=== PATIENT | female | born 1955 | race Caucasian/White ===

== ENCOUNTER 2017-08-17 06:42 | Day surgery (SDC) | payer OTHER ==
[~2017-08-17] VITALS: Ht 152.4 cm; Wt 43.1 kg
[2017-08-17 07:24] VITALS: Ht 152.4 cm; Wt 43.1 kg
[2017-08-17] MEDS ORDERED: NO MEDS. (07:35)
[2017-08-17 07:50] VITALS: BP 148/70; PULSE 61; RESP 24
--- NOTE | 2017-08-17 08:34 | OPPN ---
Date/Time of Note Date/Time of Note DATE: 08/17/17 TIME: 08:33 Proc Note GI Procedure Date 08/17/17 Indication: screening/surveillance Pre-procedure Diagnosis Screening colonoscopy Post-procedure Diagnosis Normal colonoscopy all the way into cecum and terminal ileum Procedure Performed: Colonoscopy Surgeon see signature line [employer] none Anesthesia Type: moderate sedation Tourniquet Time none EBL none Transfusion required none Biopsy 1: None Grafts/Implants none Tubes/Drains none Complication(s) none Disposition: PACU Procedure Description Dictated JEOVANNY HEALY MD Aug 17, 2017 08:34
[2017-08-17] MEDS ORDERED: FENTAnyl 50 MCG/ML VIAL ONE (08:36)
[2017-08-17] MEDS ORDERED: MIDAZOLAM 1 MG/ML 2 ML INJ ONE ×2 (08:36)
[2017-08-17 09:00] VITALS: BP 107/63; RESP 20
--- NOTE | 2017-08-17 12:19 | GILP ---
DATE OF PROCEDURE: PROCEDURE PERFORMED: Colonoscopy. A 62-year-old female undergoing this procedure for screening colonoscopy. The risk of the procedure , related and unrelated complications, sedative risks, alternatives were thoroughly discussed with t he patient, which she understood, agreed, consented for it. DESCRIPTION OF PROCEDURE: The patient was sedated with Versed 3 mg, fentanyl 50 mg. After optimum sedation, scope was passed with much ease into rectum, advanced through sigmoid, descending, transve rse colon all the way into cecum and finally into terminal ileum. Terminal ileum up to 0.5 foot was normal. The rest of the colon was normal. Scope was gradually withdrawn, thoroughly inspected the rest of the colon. While coming out, retroversion done in the rectum. No gross lesion was identif ied. Scope was straightened out and removed with good patient tolerance. IMPRESSION: 1. Normal findings all the way into cecum and terminal ileum. 2. Clarity and cleanliness was good. 3. Retroversion was normal. PLAN: Stay on high fiber diet. Next colonoscopy after 10 years. Dictated By: JEOVANNY WELLINGTON/CARLOS Conf#: [id number] DID#: [id number] CC: ERNA LAWLER MD;*EndCC*
== END 2017-08-17 17:23 | disposition home or self-care (01) ==
LOC: GIL 06:42
PROVIDERS: ATTEND Internal Medicine Gastroenterology
DX: Z12.11 Encounter for screening for malignant neoplasm of colon (principal)
CPT/HCPCS: 45378; J2250; J3010; Z7610